=== PATIENT | male | born 1945 | race Caucasian/White ===

== ENCOUNTER → 2019-01-08 | Outpatient (CLI) | payer MEDICARE, OTHER ==
[~2019-01-08] MED LIST: Prinivil10 MG PO
== END | disposition home or self-care (01) ==
LOC: PLD 11:10 → LAB SHORT 11:10
DX: D48.5 Neoplasm of uncertain behavior of skin (principal); L82.0 Inflamed seborrheic keratosis
CPT/HCPCS: 88305

== ENCOUNTER → 2020-04-15 | Outpatient (CLI) | payer MEDICARE, OTHER | END | disposition home or self-care (01) | LOC: LAB SHORT 13:31 → PLD 13:31 | DX: L82.1 Other seborrheic keratosis (principal); L57.0 Actinic keratosis | CPT/HCPCS: 88305 ==

== ENCOUNTER 2022-12-28 13:21 | Inpatient (IN) | payer MEDICARE, OTHER ==
[~2022-12-28] VITALS: Ht 177.8 cm; Wt 97.2 kg
[2022-12-28 18:47] LABS: BASOPHILS ABSOLUTE AUTO 0.11 K/mm3 (0.00-0.23); BASOPHILS PERCENT AUTO 1 % (0-2); EOSINOPHILS ABSOLUTE AUTO 0.16 K/mm3 (0.00-0.68); EOSINOPHILS PERCENT AUTO 2 % (0-6); Hematocrit 40.4 % (37.0-53.0); Hemoglobin 14.2 g/dL (13.5-17.5); IMMATURE GRAN ABSOLUTE AUTO 0.02 K/mm3 (0.00-0.10); IMMATURE GRAN PERCENT AUTO 0 % (0-1); LYMPHOCYTES ABSOLUTE AUTO 2.21 K/mm3 (0.84-5.20); LYMPHOCYTES PERCENT AUTO 21 % (21-46); MONOCYTES ABSOLUTE AUTO 0.95 K/mm3 (0.16-1.47); MONOCYTES PERCENT AUTO 9 % (4-13); Mean Corpuscular HGB 32.4 pg (26.0-34.0); Mean Corpuscular HGB Conc 35.1 g/dL (31.5-36.5); Mean Corpuscular Volume 92 fL (80-100); Mean Platelet Volume 10.4 fL (9.1-12.4); NEUTROPHILS ABSOLUTE AUTO 7.22 K/mm3 (1.96-9.15); NEUTROPHILS PERCENT AUTO 68 % (41-73); Platelet Count 307 K/mm3 (150-400); RDW Coefficient Variation 13.8 % (11.7-14.2); RDW Standard Deviation 47.6 fL (35.1-46.3); Red Blood Cell Count 4.38 M/mm3 (4.30-5.90); White Blood Cell Count 10.67 K/mm3 (4.00-11.30)
[2022-12-28 19:05] LABS: Albumin, Blood 3.5 g/dL (3.4-5.0); Bilirubin, Total 0.4 mg/dL (0.1-1.0); Bun/Creatinine Ratio 31.3 (12.0-20.0); Calcium, Blood 9.2 mg/dL (8.5-10.1); Creatinine, Blood 0.77 mg/dL (0.60-1.20); Globulin, Blood 3.4 g/dL (2.2-4.0); Potassium, Blood 3.8 mmol/L (3.5-5.5); Total Protein, Blood 6.9 g/dL (6.4-8.2)
[2022-12-28] MEDS ORDERED: LISI20 PO (21:39)
[2022-12-28] MEDS ORDERED: PRAV20 PO (21:39)
[2022-12-28] MEDS ORDERED: AMLO5 PO (21:39)
--- NOTE | 2022-12-29 04:35 | NUR ---
SHIFT SUMMARY PATIENT NEW ADMIT THIS SHIFT FOR SBO. PATIENT NPO, WITH IV FLUIDS RUNNING. PATIENT REPORTS HAVING A SMALL BM PRIOR TO ADMISSION TO THIS UNIT, HOWEVER SOME NOTED DISTENTION AND TENDER ABD ON PALP. HYPO BOWEL TONES, AND NAUSEA NOTED. MEDICATED FOR PAIN AND NAUSE THIS SHIFT, ABLE REST COMFORTABLY T/O SHIFT. PATIENT INDEPENDENT TO BATHROOM AND CALL LIGHT IS IN REACH. VSS.
[2022-12-29] MEDS ORDERED: ONDA4ODT MM (15:40)
[2022-12-29] MEDS ORDERED: VISBIOME 112.51 EACH PO (15:41)
--- NOTE | 2022-12-29 16:02 | NUR ---
DISCHARGE NOTE: PATIENT WAS EDUCATED ON DISCHARGE INSTRUCTIONS. HE VERBALIZED UNDERSTANDING OF INSTRUCTIONS AND HAD NO FURTHER QUESTIONS. IV WAS TAKEN OUT AND WNL. PATIENT REPORTS MILD NAUSEA BUT IS MANAGED WITH ZOFRAN. ABD IS SOFT AND HYPERACTIVE BOWEL TONES. HE IS TOLERATING HIS LIQUID DIET AND IS VOIDING WELL PASSING FLATUS. HE IS DRESSED AND HAS HIS PERSONAL ITEMS IN THE ROOM GATHERED. PATIENT IS WALKING OUT WITH TO HER CAR TO BE TAKEN HOME. HIS NEW PERSCRIPTIONS WERE FAXED TO HIS PREFERRED PHARMACY WHICH IS [facility]. PATIENT WILL BE ON A LIQUID DIET FOR 2 DAYS THEN CAN RETURN TO A TOLERABLE DIET PER DR. NEAL AND DR. DE LA TORRE SUGGESTION.
== END 2022-12-29 16:06 | disposition home or self-care (01) | DRG 390 ==
LOC: ER 13:21 → SURS 22:04
PROVIDERS: Student in an Organized Health Care Education/Training Program; ADMIT Internal Medicine
PROC: BD13ZZZ Fluoroscopy of Small Bowel (ICD-10-PCS; principal; 2022-12-29)
DX: K56.600 Partial intestinal obstruction, unspecified as to cause (principal); K59.00 Constipation, unspecified; K52.9 Noninfective gastroenteritis and colitis, unspecified; K56.0 Paralytic ileus; E78.5 Hyperlipidemia, unspecified; I10 Essential (primary) hypertension; E16.2 Hypoglycemia, unspecified; Z98.890 Other specified postprocedural states; Z87.891 Personal history of nicotine dependence; Z90.49 Acquired absence of other specified parts of digestive tract; Z79.811 Long term (current) use of aromatase inhibitors; Z79.899 Other long term (current) drug therapy
CPT/HCPCS: 74250; 80053; 83605; 85025; 96361; 96374; 99284-25; J2405; J3010; J7030

== ENCOUNTER 2023-03-01 22:26 | Emergency (ER) | payer OTHER ==
[~2023-03-01] VITALS: Ht 177.8 cm; Wt 86.2 kg
[~2023-03-01 22:26] MED LIST changes: +AMLO5 PO; +LISI20 PO; +ONDA4ODT MM; +PRAV20 PO; +VISBIOME 112.51 EACH PO
[2023-03-01 23:35] LABS: BASOPHILS ABSOLUTE AUTO 0.08 K/mm3 (0.00-0.23); BASOPHILS PERCENT AUTO 1 % (0-2); EOSINOPHILS ABSOLUTE AUTO 0.05 K/mm3 (0.00-0.68); EOSINOPHILS PERCENT AUTO 0 % (0-6); Hematocrit 44.3 % (37.0-53.0); Hemoglobin 15.4 g/dL (13.5-17.5); IMMATURE GRAN ABSOLUTE AUTO 0.03 K/mm3 (0.00-0.10); IMMATURE GRAN PERCENT AUTO 0 % (0-1); LYMPHOCYTES PERCENT AUTO 11 % (21-46); MONOCYTES ABSOLUTE AUTO 0.88 K/mm3 (0.16-1.47); MONOCYTES PERCENT AUTO 7 % (4-13); Mean Corpuscular HGB 31.4 pg (26.0-34.0); Mean Corpuscular HGB Conc 34.8 g/dL (31.5-36.5); Mean Corpuscular Volume 90 fL (80-100); Mean Platelet Volume 10.4 fL (9.1-12.4); NEUTROPHILS ABSOLUTE AUTO 9.91 K/mm3 (1.96-9.15); NEUTROPHILS PERCENT AUTO 81 % (41-73); Platelet Count 294 K/mm3 (150-400); RDW Coefficient Variation 12.9 % (11.7-14.2); RDW Standard Deviation 42.4 fL (35.1-46.3); White Blood Cell Count 12.25 K/mm3 (4.00-11.30)
[2023-03-01 23:54] LABS: Albumin, Blood 3.9 g/dL (3.4-5.0); Bilirubin, Total 0.6 mg/dL (0.1-1.0); Calcium, Blood 9.7 mg/dL (8.5-10.1); Creatinine, Blood 1.11 mg/dL (0.60-1.20); Globulin, Blood 3.8 g/dL (2.2-4.0); Potassium, Blood 4.5 mmol/L (3.5-5.5); Total Protein, Blood 7.7 g/dL (6.4-8.2)
[2023-03-02 01:15] VITALS: BP 117/83
[2023-03-02] MEDS ORDERED: DICY20 PO (02:05)
== END 2023-03-02 02:00 | disposition home or self-care (01) ==
LOC: ER 22:26
PROVIDERS: Student in an Organized Health Care Education/Training Program
DX: K52.9 Noninfective gastroenteritis and colitis, unspecified (principal); Z79.899 Other long term (current) drug therapy; E78.5 Hyperlipidemia, unspecified; I10 Essential (primary) hypertension; Z87.891 Personal history of nicotine dependence
CPT/HCPCS: 36415; 74177; 80053; 85025; 93005; 93010; 99284-25; Q9967

== ENCOUNTER 2024-09-11 08:37 | Day surgery (SDC) | payer OTHER ==
[~2024-09-11] VITALS: Ht 177.8 cm; Wt 90.1 kg
[~2024-09-11 08:37] MED LIST changes: +Balanced Salt Epinephrine Irrigation Solution 500 mL IR SCH; +DICY20 PO; +Lidocaine HCl/Pf 1% 5 ML VIAL XX SCH; +Moxifloxacin HCL 0.5 MG/0.1 ML 0.4MLSYR RIGHTEYE SCH; +PHENYLEPHRINE\\TROPICAMIDE\\TETRACAINE OPHTHALMIC DILATING SOLN RIGHTEYE PRN; +Povidone-Iodine 450 DROP/30 ML Solution RIGHTEYE SCH; +Triamcinolone Inj Susp 40 MG / ML 1ML Vial INJ SCH; +Triamcinolone Inj Susp 40 MG / ML 1ML Vial ONE
[2024-09-11] MEDS ORDERED: Midazolam HCl 1MG / ML 2ML Vial ONE (09:41)
[2024-09-11 11:16] VITALS: BP 135/74
== END 2024-09-11 10:32 | disposition home or self-care (01) ==
LOC: ORSCSDS 08:37
PROVIDERS: Ophthalmology
PROC: 08RJ3JZ Replacement of Right Lens with Synthetic Substitute, Percutaneous Approach (ICD-10-PCS; principal; 2024-09-11 10:00)
DX: H25.813 Combined forms of age-related cataract, bilateral (principal); H52.201 Unspecified astigmatism, right eye; I10 Essential (primary) hypertension; Z79.899 Other long term (current) drug therapy
CPT/HCPCS: J2250; J3301; V2632